=== PATIENT | male | born 1995 | race Caucasian/White ===

== ENCOUNTER 2018-07-11 12:33 | Emergency (ER) | payer OTHER ==
[~2018-07-11] VITALS: Ht 188 cm; Wt 86.2 kg
[2018-07-11 13:48] LABS: ABSOLUTE NEUTROPHILS 5.7 thou/uL (1.4-8.2); BASOPHILS 0.5 % (0.0-2.0); EOSINOPHILS 0.6 % (0.0-3.0); HEMATOCRIT 41.1 % (42.0-52.0); LYMPHOCYTES 19.6 % (24.0-44.0); MCH 30.4 pg (26.0-34.0); MCV 89.6 fL (80.0-100.0); MONOCYTES 6.1 % (1.0-8.0); POLYS 73.2 % (36.0-66.0); RBC 4.59 mil/uL (4.50-6.00); RDW 12.8 % (10.5-14.5); WBC 7.8 thou/uL (4.0-11.0)
[2018-07-11 14:11] LABS: PLATELET COUNT 155 thou/uL (150-400)
[2018-07-11 14:12] LABS: LARGE PLATELETS RARE
[2018-07-11 14:13] LABS: CALCIUM 9.2 mg/dL (8.5-10.1); POTASSIUM 3.9 mmol/L (3.5-5.1)
[2018-07-11 14:19] LABS: ALBUMIN 4.6 g/dL (3.4-5.0); TOTAL BILIRUBIN 1.1 mg/dL (<0.1-1.0); TOTAL PROTEIN 7.7 g/dL (6.4-8.2)
[2018-07-11 14:57] LABS: URINE BILIRUBIN NEGATIVE (Negative); URINE BLOOD NEGATIVE (Negative); URINE CLARITY CLEAR; URINE COLOR YELLOW; URINE GLUCOSE-RANDOM* NEGATIVE (Negative); URINE KETONES NEGATIVE (Negative); URINE LEUKOCYTES-REFLEX NEGATIVE (Negative); URINE NITRITE-REFLEX NEGATIVE (Negative); URINE PROTEIN (DIPSTICK) NEGATIVE (Negative); URINE UROBILINOGEN 0.2 E.U./dl (0.2-1.0)
[2018-07-11 16:05] VITALS: BP 138/46
== END 2018-07-11 16:05 | disposition left against medical advice (07) ==
LOC: ER 12:33
PROVIDERS: Physician Assistant
DX: K37 Unspecified appendicitis (principal)